=== PATIENT | male | born 1955 | race Caucasian/White ===

== ENCOUNTER 2021-01-13 16:20 | Emergency (ER) | payer OTHER ==
[~2021-01-13] VITALS: Ht 182.9 cm; Wt 124.7 kg
--- NOTE | 2021-01-13 16:45 | NUR ---
VISHNU SCHMIDT AT BEDSIDE
--- NOTE | 2021-01-13 17:09 | NUR ---
URINE SAMPLE COLLECTED AND SENT TO LAB
[2021-01-13 17:45] LABS: BILIRUBIN,URINE NEGATIVE (NEGATIVE); COLOR,URINE YELLOW (YELLOW); LEUKOCYTE ESTERASE ,URINE LARGE (NEGATIVE); NITRITE, URINE NEGATIVE (NEGATIVE); PH,URINE 6.5 (5.0-8.0); PROTEIN,URINE 100 mg/dl (NEGATIVE); UGLUCOSE NEGATIVE (NEGATIVE); UROBILINOGEN,URINE 0.2 EU/dL (0.2)
--- NOTE | 2021-01-13 17:52 | NUR ---
MIDLINE NURSE AT BEDSIDE
[2021-01-13 18:12] LABS: BASOPHILS # (AUTO) 0.1 K/uL (0.0-0.2); BASOPHILS % (AUTO) 0.5 % (0.0-2.0); EOSINOPHILS % (AUTO) 1.3 % (0.0-6.0); HEMATOCRIT 40 % (39-51); HEMOGLOBIN 12.7 g/dL (13.5-17.5); LYMPHOCYTES # (AUTO) 1.3 K/uL (0.8-4.8); LYMPHOCYTES % (AUTO) 12.2 % (20.0-44.0); MEAN CORPUSCULAR HGB CONC 32 g/dl (31.0-36.0); MEAN CORPUSCULAR VOLUME 98 fL (80-96); MONOCYTES # (AUTO) 1.3 K/uL (0.1-1.30); MONOCYTES % (AUTO) 12.7 % (2.0-12.0); NEUTROPHILS # (AUTO) 7.7 K/uL (1.8-8.9); NEUTROPHILS % (AUTO) 73.3 % (43.0-81.0); PLATELET COUNT (AUTO) 223 K/uL (150-450); RED BLOOD CELL COUNT(AUTO) 4.01 MIL/uL (4.5-6.0); WHITE BLOOD COUNT (AUTO) 10.5 K/uL (4.3-11.0)
[2021-01-13 18:21] LABS: BACTERIA,URINE 2+ /HPF (None Seen); RBC,URINE 51-80 /HPF (0-2); SQUAMOUS EPITHELIAL CELL,UR 0-2 /HPF (None Seen); WBC,URINE TOO NUMEROUS TO COUN /HPF (0-3)
[2021-01-13 18:24] LABS: CALCIUM, SERUM 8.3 mg/dL (8.5-10.1); CARBON DIOXIDE 26 mmol/L (21-32); CHLORIDE 100 mmol/L (98-107); CREATININE 1.2 mg/dL (0.6-1.3); GLUCOSE 124 mg/dL (74-106); POTASSIUM 4.2 mmol/L (3.5-5.1); SODIUM SERUM 133 mmol/L (136-145); UREA NITROGEN, BLOOD 25 mg/dL (7-18)
[2021-01-13 18:30] LABS: ALANINE AMINOTRANSFERASE 54 U/L (12-78); ALBUMIN 3.6 g/dL (3.4-5.0); ALKALINE PHOSPHATASE 86 U/L (46-116); ASPARTATE AMINOTRANSFERASE 40 U/L (15-37); BILIRUBIN,DIRECT 0.1 mg/dL (0.0-0.2); BILIRUBIN,TOTAL 0.6 mg/dL (0.2-1.0); TOTAL PROTEIN, SERUM 7.7 g/dL (6.4-8.2)
--- NOTE | 2021-01-13 19:02 | NUR ---
TRANSPORT [facility] IS ON THE WAY FOR THE PT. 20-25 MIN ETA.
--- NOTE | 2021-01-13 19:08 | NUR ---
CALLED [facility] AND SPOKE WITH EMMETT, AN ATTENDANT, ABOUT ARRANGING PT TRANSPORT BACK TO [facility]. THEY WILL CALL BACK
[2021-01-13] MEDS ORDERED: CEFTRIAXONE 1GM BAG (ER ONLY) 50 ML IV ONE (19:15)
[2021-01-13] MEDS ORDERED: PHEN-705 PO (19:22)
[2021-01-13] MEDS ORDERED: CEPH500T PO (19:22)
[2021-01-13] MEDS: CEFTRIAXONE 1GM BAG (ER ONLY) 1 GM/50 ML PIGGYBACK IV ONE (19:25)
[2021-01-13] MEDS: IV NS 0.9% 1,000 ML BAG IV ONE (19:25)
--- NOTE | 2021-01-13 19:30 | NUR ---
REPORT GIVEN TO IRMA ENRIQUEZ FOR CINDI
[2021-01-13 21:18] VITALS: BP 140/88
--- NOTE | 2021-01-13 21:18 | NUR ---
Patient discharged to home in stable condition. Written and verbal after care instructions given. Patient verbalizes understanding of instruction.
== END 2021-01-13 21:18 | disposition short-term general hospital (02) ==
LOC: ER 16:24
DX: N30.90 Cystitis, unspecified without hematuria (principal); K43.9 Ventral hernia without obstruction or gangrene; I10 Essential (primary) hypertension; F31.9 Bipolar disorder, unspecified; Z98.890 Other specified postprocedural states; Z79.899 Other long term (current) drug therapy
CPT/HCPCS: 36410; 36415; 74176; 80048; 80076; 81001; 84484; 85025; 87040 ×2; 87077; 87086; 87186; 93005; 96365; 99285; J0696; J7030